=== PATIENT | female | born 1975 | race African-American/Black ===

== ENCOUNTER 2022-03-13 12:44 | Emergency (ER) | payer MEDICAID, OTHER ==
[~2022-03-13] VITALS: Ht 160 cm; Wt 72.0 kg
[2022-03-13] MEDS ORDERED: SODIUM CHLORIDE 0.9% 1,000 ML IV ONE (13:30)
[2022-03-13 16:16] LABS: BASOPHILS % 1.3 % (0.0-2.0); EOSINOPHILS % 1.2 % (0.0-5.0); HEMATOCRIT. 27.1 % (36.0-48.0); HEMOGLOBIN. 7.5 g/dL (12.0-16.0); LYMPHOCYTES % 45.2 % (20.0-50.0); MEAN CORPUSCULAR HEMOGLOBIN 17.6 pg (28.0-32.0); MEAN CORPUSCULAR VOLUME 63.4 fL (81.0-99.0); MEAN PLATELET VOLUME 9.1 fl (7.4-10.4); MONOCYTES % 6.7 % (2.0-8.0); NEUTROPHILS % 45.6 % (40.0-76.0); PLATELET 306 x1000/uL (130-400); RED BLOOD CELL COUNT 4.27 mill/uL (4.2-5.4); RED CELL DISTRIBUTION WIDTH 23.1 % (11.6-14.6)
[2022-03-13 16:24] LABS: CHLORIDE 111 mEq/L (98-107)
[2022-03-13 16:28] LABS: INR 1.2; PARTIAL THROMBOPLASTIN TIME 25.6 sec (23.4-31.0); PROTHROMBIN TIME 12.4 sec (9.6-11.0)
[2022-03-13 16:32] LABS: HCG SCREEN NEGATIVE
[2022-03-13 18:00] VITALS: BP 120/62
[2022-03-13 19:39] LABS: PLATELET ESTIMATE NORMAL
== END 2022-03-13 18:17 | disposition home or self-care (01) ==
LOC: ER 12:44 → CANBEDREQ 22:35
DX: D25.9 Leiomyoma of uterus, unspecified (principal); D64.9 Anemia, unspecified; N93.8 Other specified abnormal uterine and vaginal bleeding; Z90.49 Acquired absence of other specified parts of digestive tract
CPT/HCPCS: 36415; 76856; 80053; 81025; 84703; 85025; 85610; 85730; 86850; 86900; 86901; 93005; 96360; 99285; J7030